=== PATIENT | male | born 1975 | race Caucasian/White ===

== ENCOUNTER 2017-03-09 09:47 | Day surgery (SDC) | payer OTHER ==
[~2017-03-09] VITALS: Ht 162.6 cm; Wt 91.8 kg
[2017-03-09] VITALS (11 sets, daily range): BP systolic 77–117; BP diastolic 44–84; PULSE 68–98; RESP 12–18; Ht 162.6 cm; Wt 91.8 kg
[~2017-03-09 09:47] MED LIST: ATROPINE 1 MG/10 ML SYRINGE IV PRN; DIPHENHYDRAMINE 50 MG INJ IV PRN; EPHEDrine SULFATE 50 MG/5 ML SYG IV PRN; FENTAnyl 50 MCG/ML VIAL IV PRN; HYDROmorphONE (0.2 MG/ML) 10ML SYG IV PRN; LABETALOL HCL 20MG INJ IV PRN; MEPERIDINE 25 MG INJ IV PRN; MIDAZOLAM 1 MG/ML 2 ML INJ IV PRN; ONDANSETRON 4 MG INJ IV PRN; OXYCODONE/ACETAMINOPHEN (5/325) TAB PO PRN; hydrALAzine 20 MG INJ IV PRN; morphine (1 MG/ML) 10ML SYRINGE IV PRN
[2017-03-09 11:18] LABS: BASOPHILS % 0.5 % (0.0-2.0); EOSINOPHILS # 0.2 10^3/ul (0.0-0.5); EOSINOPHILS % 2.3 % (0.0-7.0); HEMATOCRIT 46.5 % (42.0-52.0); HEMOGLOBIN 15.2 g/dl (14.0-18.0); LYMPHOCYTES # 2.2 10^3/ul (0.8-2.9); LYMPHOCYTES % 33.2 % (15.0-51.0); MEAN CORPUSCULAR HEMOGLOBIN 32.2 pg (29.0-33.0); MEAN CORPUSCULAR HGB CONC 32.7 g/dl (32.0-37.0); MEAN CORPUSCULAR VOLUME 98.5 fl (82.0-101.0); MONOCYTE # 0.5 10^3/ul (0.3-0.9); MONOCYTES % 7.6 % (0.0-11.0); NEUTROPHIL # 3.7 10^3/ul (1.6-7.5); NEUTROPHILS % 56.1 % (39.0-77.0); PLATELET COUNT 198 10^3/UL (140-415); RED BLOOD COUNT 4.72 10^6/ul (4.70-6.10); RED CELL DISTRIBUTION WIDTH 12.9 % (11.5-14.5); WHITE BLOOD COUNT 6.6 10^3/ul (4.8-10.8)
[2017-03-09] MEDS ORDERED: CIPROFLOXACIN 400 MG in D5W 200 ML IVPB ONE (11:30)
[2017-03-09 11:40] LABS: INR 0.95; PROTIME 12.7 Sec (12.2-14.2)
[2017-03-09 11:41] LABS: PARTIAL THROMBOPLASTIN TIME 27.8 Sec (25.0-35.0)
[2017-03-09 11:47] LABS: ALBUMIN 4.5 g/dl (3.3-4.9); ALBUMIN/GLOBULIN RATIO 1.36; BILIRUBIN,INDIRECT 0.6 mg/dl (0-1.1); BILIRUBIN,TOTAL 0.6 mg/dl (0.2-1.3); TOTAL PROTEIN 7.8 g/dl (6.1-8.1)
[2017-03-09 11:50] LABS: CREATININE 1.01 mg/dl (0.61-1.24)
[2017-03-09 11:52] LABS: POTASSIUM 5.5 mmol/L (3.5-5.1)
[2017-03-09] MEDS ORDERED: IOHEXOL 300MG/ML 30 ML BTL ONE (13:20)
[2017-03-09] MEDS ORDERED: LIDOCAINE 2% (SDV) 5 ML INJ ONE (13:39)
[2017-03-09] MEDS ORDERED: ROCURONIUM 50 MG INJ ONE (13:39)
[2017-03-09] MEDS ORDERED: PROPOFOL 20 ML ONE (13:39)
[2017-03-09] MEDS ORDERED: MIDAZOLAM 1 MG/ML 2 ML INJ ONE (13:39)
[2017-03-09] MEDS ORDERED: FENTAnyl 50 MCG/ML VIAL ONE (13:39)
[2017-03-09] MEDS ORDERED: GLYCOPYRROLATE 0.4 MG INJ ONE (13:39)
[2017-03-09] MEDS ORDERED: NEOSTIGMINE 3 MG/3 ML SYRINGE ONE (13:39)
[2017-03-09] MEDS ORDERED: DEXAMETHASONE 4 MG/ML 1 ML INJ ONE (13:40)
[2017-03-09] MEDS ORDERED: CEFAZOLIN 1 GM INJ ONE (13:40)
[2017-03-09] MEDS ORDERED: ONDANSETRON 4 MG INJ ONE (13:40)
[2017-03-09] MEDS ORDERED: IOHEXOL 300MG/ML 30 ML BTL INJ ONE (14:19)
[2017-03-09] MEDS ORDERED: CIPROFLOXACIN 400MG/D5W 200 ML ONE (14:19)
--- NOTE | 2017-03-09 15:16 | PDOCDIS ---
Discharge Instructions CONDITION Patient Condition: Good HOME CARE INSTRUCTIONS: Diet Instructions: Regular ACTIVITY: Activity Restrictions: No Restrictions Bathing Restrictions: Shower FOLLOW UP/APPOINTMENTS Follow-up Plan 2 weeks after an x ray to be obtained. Call office for date and time. At time of follow up the stent is to be removed. SCHOOL/WORK RELEASE May return to School/Work on: Mar 10, 2017 MARK ROSALES Mar 09, 2017 15:16
--- NOTE | 2017-03-09 15:17 | HPN ---
Date/Time of Note Date/Time of Note DATE: 03/09/17 TIME: 15:17 Interval H&P Admission Note Pt. seen H&P reviewed: No system changes MARK ROSALES Mar 09, 2017 15:17
--- NOTE | 2017-03-09 15:19 | OPR ---
Date/Time of Note Date/Time of Note DATE: 03/09/17 TIME: 15:18 Operative Report Preoperative Diagnosis right nephrolithiasis Postoperative Diagnosis same Operation/Procedure Performed cysto, right retrograde pyelogram, insertion right ureteral stent, right ESWL Surgeon Tadeo [employer] none Anesthesia Type: general Estimated Blood Loss: none Transfusion none Specimen none Grafts/Implants none Tubes/Drains 24 cm 6 f stent Complications none Disposition: PACU Indications stone Procedure Description dictatio number [id number] MARK ROSALES Mar 09, 2017 15:19
[2017-03-09] MEDS: HYDROmorphONE (0.2 MG/ML) 10ML SYG IV PRN ×3 (15:35→15:58)
--- NOTE | 2017-03-09 19:53 | OPR ---
DATE OF OPERATION: 03/09/2017 BRIEF HISTORY: Tom Linn is a 41-year-old male with a 7 mm right proximal ureteral stone p resents for cystoscopy, retrograde pyelogram, and stent, ESWL. How the is procedure performed, pote ntial complication side effects states intervention importance of removal of the stent in a timely f ashion, less than 3 months, to avoid encrustation has been reviewed. Preoperative consent direct an d for the procedure has been previously reviewed and signed. PREOPERATIVE DIAGNOSIS: Proximal right ureteral calculi. POSTOPERATIVE DIAGNOSIS: Proximal right ureteral calculi. OPERATION PERFORMED: Cystoscopy, right retrograde pyelogram, insertion right ureteral stent, right extracorporeal shock wave lithotripsy. A 7 mm proximal right ureteral stone. SURGEON: Mark Piedra MD. ANESTHESIA: General. DESCRIPTION OF PROCEDURE: The patient was brought into the operating room and placed on the [place] SLX lithotripter for right extracorporeal shockwave lithotripsy. He was prepped and draped in the usual fashion after anesthesia was induced. A timeout was undertaken. Appropriate pressure points were padded. He received preoperative antibiotic therapy and sequential compression devices were obtained and fluoroscopy was obtained, which demonstrated a 7 mm stone in the path of the prox imal right ureter. Cystoscopy was then undertaken with a 12-degree and 30-degree angle lens. No ab normalities of the urethra could be appreciated. Bladder was inspected in a systematic fashion. No foreign body or bladder stone or tumor could be appreciated. Bilateral ureteral orifices within no rmal limits. A right retrograde pyelogram was undertaken demonstrating the stone to be in the proxi mal ureter. During this period of time, it was noted that the stone migrated into the mid pole of t he right kidney. A wire was placed up to the level of the upper pole and subsequently a 24 cm 6-Bob nch double-J ureteral stent was inserted with the proximal speckling within the renal pelvis and the distal aspect coiling in the gallbladder. The patient was repositioned for right extracorporeal sh ock wave lithotripsy, which is started with initial energy level of 3 and progressively increased to a level of 7. At 1.5 minutes, a pause was undertaken. Intermittent fluoroscopy was undertaken so as to visualize fragmentation of the stone and confirm that the stone burden was maintained within t he appropriate focal point. A total of 2400 shocks were delivered. Excellent fragmentation was not ed. He was sent to recovery room in stable condition. A followup KUB with obliques will be obtaine d in 2 weeks' time and after that he will follow up in the office for cysto stent removal. The alma ent was discharged to home on [place] one tab p.o. q.6 hour p.r.n., dispense #40. No refill. Dictated By: MARK CHIN/NTS Conf#: [id number] DID#: [id number]
--- NOTE | 2017-03-10 21:32 | RADRPT ---
PROCEDURE: Intraoperative imaging of the abdomen with fluoroscopy. CLINICAL INDICATION: Right renal calculi. Intraoperative. TECHNIQUE: 9 images of the abdomen were obtained in the operating room with an image intensifier. No radiologist was in attendance. Fluoroscopy time is 112 seconds. COMPARISON: No prior study is available for comparison. FINDINGS: Images demonstrate targeting of multiple right renal calculi for ESWL . Images also demonstrate plac ement of a right ureteral stent. IMPRESSION: 1. Satisfactory intraoperative imaging of the abdomen for ESWL and stent placement. RPTAT: QQ .Srinivas Zepeda MD, MD Date Time Electronically viewed and signed by .Srinivas Zepeda MD, on 03/10/2017 21:32 .R/
== END 2017-03-09 17:58 | disposition home or self-care (01) ==
LOC: SDS 09:47
PROVIDERS: ATTEND Urology
DX: N20.2 Calculus of kidney with calculus of ureter (principal); R80.9 Proteinuria, unspecified; R31.29 Other microscopic hematuria
CPT/HCPCS: 50590; 74420; 80053; 85025; 85610; 85730; C2617; J0690; J0744; J1100; J1170; J2175; J2250; J2405; J2710; J3010; Q9967